=== PATIENT | male | born 1955 | race African-American/Black ===

== ENCOUNTER 2018-03-01 18:42 | Emergency (ER) | payer SELFPAY ==
[~2018-03-01] VITALS: Ht 185.4 cm; Wt 81.6 kg
[2018-03-01 18:56] VITALS: BP 120/77
== END 2018-03-01 20:16 | disposition left against medical advice (07) ==
LOC: ER 18:58
DX: Z93.3 Colostomy status (principal); Z53.21 Procedure and treatment not carried out due to patient leaving prior to being seen by health care provider